=== PATIENT | female | born 1955 | race American Indian/Alaskan Native ===

== ENCOUNTER 2019-04-23 10:19 | Emergency (ER) | payer MEDICARE ==
[2019-04-23 11:03] LABS: Basophils % (Auto) 0.9 % (0.0-1.8); Eosinophils % (Auto) 0.7 % (0.0-4.3); Hematocrit 46.3 % (30.3-42.9); Hemoglobin 15.6 gm/dl (10.1-14.3); Lymphocytes # (Auto) 1.7 K/mm3 (1.2-5.4); Lymphocytes % (Auto) 41.4 % (13.4-35.0); Mean Corpuscular HGB Conc 34 % (30-34); Mean Corpuscular Volume 89 fl (79-97); Monocytes # (Auto) 0.7 K/mm3 (0.0-0.8); Monocytes % (Auto) 15.8 % (0.0-7.3); Platelet Count 117 K/mm3 (140-440); Red Blood Count 5.22 M/mm3 (3.65-5.03); Red Cell Distribution Width 13.8 % (13.2-15.2)
[2019-04-23 11:23] LABS: BUN/Creatinine Ratio 13; Blood Urea Nitrogen 8 mg/dL (7-17); Calcium 9.6 mg/dL (8.4-10.2); Hemolysis Index 35
--- NOTE | 2019-04-23 11:46 | Emergency Department Report ---
ED General Adult HPI - General Chief complaint: Altered Mental Status Stated complaint: ALTERED MENTAL STATUS Time Seen by Provider: 04/23/19 11:14 Source: patient, RN notes reviewed, old records reviewed Mode of arrival: Ambulatory Limitations: Altered Mental Status, Other (the patient is a poor historian.) - History of Present Illness Initial comments: This is a 63-year-old female. The patient is not known to this provider previously. The patient was apparently dropped off by unknown person by personal vehicle. The patient thinks that the doctor has center somewhere. She cannot recall the name of this doctor. She's not sure why she is being sent anywhere. She states that she is hungry. She then indicates that she has abdominal cramping. She denies headache, neck pain, chest pain, urinary symptoms at this time. The patient states that she lives locally. She states some people are going to help her get an apartment. She is not homicidal. She is not suicidal. She doesn't know her address. She doesn't know the year. She doesn't know if she takes any medications. It is unclear why the patient was dropped off by the aforementioned personal vehicle. The patient is not accompanied by any friends or family members or any other individuals who are able to give collateral information. At the moment, the patient denies physical pain. -: unknown Radiation: other Quality: other Consistency: other Improves with: other Worsens with: other - Related Data Previous Rx's Medication Instructions Recorded Last Taken Type Butalb/Acetamin/Caff 50-325-40 1 tab PO Q6HR PRN #10 tab 01/13/19 Unknown Rx [Fioricet] Loratadine 10 mg PO DAILY 30 Days #30 tablet 01/13/19 Unknown Rx Allergies Allergy/AdvReac Type Severity Reaction Status Date / Time No Known Allergies Allergy Unverified 01/13/19 18:06 ED Review of Systems ROS: Stated complaint: ALTERED MENTAL STATUS Other details as noted in HPI Constitutional: denies: fever Eyes: denies: eye discharge ENT: denies: epistaxis Respiratory: denies: cough Cardiovascular: denies: chest pain Gastrointestinal: denies: nausea, vomiting Genitourinary: denies: dysuria Musculoskeletal: denies: back pain Neurological: confusion Psychiatric: anxiety. denies: suicidal thoughts ED Past Medical Hx - Past Medical History Previous Medical History?: Yes Hx Hypertension: Yes Hx CVA: Yes (right-sided weakness) Hx Seizures: Yes Hx Dementia: Yes - Surgical History Past Surgical History?: No - Social History Smoking Status: Current Every Day Smoker Substance Use Type: Alcohol - Medications Home Medications: Home Medications Medication Instructions Recorded Confirmed Last Taken Type Butalb/Acetamin/Caff 50-325-40 1 tab PO Q6HR PRN #10 tab 01/13/19 Unknown Rx [Fioricet] Loratadine 10 mg PO DAILY 30 Days #30 tablet 01/13/19 Unknown Rx ED Physical Exam - General Limitations: Altered Mental Status, Other (the patient is disorganized. The patient is a poor historian.) General appearance: alert, in no apparent distress - Head Head exam: Present: atraumatic, normocephalic - Eye Eye exam: Present: normal appearance, EOMI, other (visual acuity intact to finger counting, color perception, reading at a close distance). Absent: nystagmus - ENT ENT exam: Present: normal exam, normal orophraynx, mucous membranes moist, normal external ear exam - Neck Neck exam: Present: normal inspection, full ROM. Absent: tenderness, meningismus - Respiratory Respiratory exam: Present: normal lung sounds bilaterally. Absent: respiratory distress - Cardiovascular Cardiovascular Exam: Present: regular rate, normal rhythm, normal heart sounds. Absent: bradycardia, tachycardia, irregular rhythm, systolic murmur, diastolic murmur, rubs, gallop - GI/Abdominal GI/Abdominal exam: Present: soft. Absent: distended, tenderness, guarding, rebound, rigid, pulsatile mass - Extremities Exam Extremities exam: Present: normal inspection, full ROM, other (2+ pulses noted in the bilateral upper, lower extremities. Compartments soft. No long bony tenderness. The pelvis is stable.). Absent: pedal edema, joint swelling, calf tenderness - Back Exam Back exam: Present: normal inspection, full ROM. Absent: tenderness, CVA tenderness (R), CVA tenderness (L), paraspinal tenderness, vertebral tenderness - Neurological Exam Neurological exam: Present: alert (the patient is alert to name. She doesn't know the year. She doesn't know where she is.), other (Extraocular movements intact. Tongue midline. No facial droop. Facial sensation intact to light t ouch in the V1, V2, V3 distribution bilaterally. 5 and 5 strength in 4 extremities.. Sensation is intact to light touch in 4 extremities.). Absent: motor sensory deficit - Psychiatric Psychiatric exam: Present: anxious - Skin Skin exam: Present: warm, dry, intact, normal color. Absent: rash ED Course Vital Signs 04/23/19 04/23/19 04/23/19 10:32 11:30 13:17 Temperature 98.2 F Pulse Rate 80 85 84 Respiratory 16 18 18 Rate Blood Pressure 152/94 Blood Pressure 135/62 155/68 [Right] O2 Sat by Pulse 99 100 100 Oximetry - Reevaluation(s) Reevaluation #1: 04/23/19 13:16 Differential diagnosis, including not limited to: Dementia, dehydration, thyroid derangement, electrolyte derangement, urinary tract infection, cranial hemorrhage, constipation, functional abdominal pain, case management patient Assessment and plan: 63-year-old female who appears to be confused, intermittently endorse abdominal cramping, now resolved, with a nonfocal motor examination, and an unremarkable physical examination. He is afebrile with reassuring vital signs. Her screening laboratory studies are unremarkable. Specifically, ammonia, renal function, thyroid function all within acceptable limits. Objective imaging studies, including CT scan of the brain, CT scan of the abdomen and pelvis has not demonstrated any acute or emergent conditions. Urinalysis is pending at this time. The patient may have early onset dementia, or progressive dementia, however, she does not meet 1013 criteria. Furthermore, the patient has not declared any condition at this time that would require emergency medical hospitalization. Patient will be placed on a hold, the case has been consulted and requested to assist with outpatient placement Reevaluation #2: 04/23/19 14:03 Additional information was obtained as clerical staff were able to get in touch with the patient's caregiver, Ms. Dyana Llanes; [phone] The patient [facility]. Her primary care doctor is Dr. Jesus Hassan, at [facility] Her psychiatrist is Dr. Alexandro Morillo; she has a follow-up appointment with him t omorrow. Apparently, the patient was recently diagnosed with dementia. The patient's caregiver is currently working with case management and Medicaid to obtain additional resources for this patient, and possibly seek placement into a home. I discussed this with our family service caseworker who is going to contact Mrs. Dyana Llanes Patient most likely has progressive dementia, and is experiencing the natural history of her underlying dementia. She does not appear to have an emergent medical condition at this time, and she may be discharged. ED Medical Decision Making - Lab Data Result diagrams: 04/23/19 10:45 04/23/19 10:45 Vital Signs 04/23/19 04/23/19 04/23/19 10:32 11:30 13:17 Temperature 98.2 F Pulse Rate 80 85 84 Respiratory 16 18 18 Rate Blood Pressure 152/94 Blood Pressure 135/62 155/68 [Right] O2 Sat by Pulse 99 100 100 Oximetry Lab Results 04/23/19 04/23/19 04/23/19 Range/Units 10:35 10:45 10:45 WBC 4.2 L (4.5-11.0) K/mm3 RBC 5.22 H (3.65-5.03) M/mm3 Hgb 15.6 H (10.1-14.3) gm/dl Hct 46.3 H (30.3-42.9) % MCV 89 (79-97) fl MCH 30 (28-32) pg MCHC 34 (30-34) % RDW 13.8 (13.2-15.2) % Plt Count 117 L (140-440) K/mm3 Lymph % (Auto) 41.4 H (13.4-35.0) % [place] % (Auto) 15.8 H (0.0-7.3) % Eos % (Auto) 0.7 (0.0-4.3) % Baso % (Auto) 0.9 (0.0-1.8) % Lymph # 1.7 (1.2-5.4) K/mm3 [place] # 0.7 (0.0-0.8) K/mm3 Eos # 0.0 (0.0-0.4) K/mm3 Baso # 0.0 (0.0-0.1) K/mm3 Seg Neutrophils % 41.2 (40.0-70.0) % Seg Neutrophils # 1.7 L (1.8-7.7) K/mm3 Sodium 140 (137-145) mmol/L Potassium 4.1 (3.6-5.0) mmol/L Chloride 101.2 (98-107) mmol/L Carbon Dioxide 29 (22-30) mmol/L Anion Gap 14 mmol/L BUN 8 (7-17) mg/dL Creatinine 0.6 L (0.7-1.2) mg/dL Estimated GFR > 60 ml/min BUN/Creatinine Ratio 13 % Glucose 96 (65-100) mg/dL POC Glucose 95 (70-105) Calcium 9.6 (8.4-10.2) mg/dL Magnesium (1.7-2.3) mg/dL Ammonia (25-60) umol/L Total Creatine Kinase (30-135) units/L TSH (0.270-4.200) mlU/mL Free T4 (0.76-1.46) ng/dL Salicylates (2.8-20.0) mg/dL Acetaminophen (10.0-30.0) ug/mL Plasma/Serum Alcohol (0-0.07) % 04/23/19 04/23/19 04/23/19 Range/Units 11:32 11:50 11:50 WBC (4.5-11.0) K/mm3 RBC (3.65-5.03) M/mm3 Hgb (10.1-14.3) gm/dl Hct (30.3-42.9) % MCV (79-97) fl MCH (28-32) pg MCHC (30-34) % RDW (13.2-15.2) % Plt Count (140-440) K/mm3 Lymph % (Auto) (13.4-35.0) % [place] % (Auto) (0.0-7.3) % Eos % (Auto) (0.0-4.3) % Baso % (Auto) (0.0-1.8) % Lymph # (1.2-5.4) K/mm3 [place] # (0.0-0.8) K/mm3 Eos # (0.0-0.4) K/mm3 Baso # (0.0-0.1) K/mm3 Seg Neutrophils % (40.0-70.0) % Seg Neutrophils # (1.8-7.7) K/mm3 Sodium (137-145) mmol/L Potassium (3.6-5.0) mmol/L Chloride (98-107) mmol/L Carbon Dioxide (22-30) mmol/L Anion Gap mmol/L BUN (7-17) mg/dL Creatinine (0.7-1.2) mg/dL Estimated GFR ml/min BUN/Creatinine Ratio % Glucose (65-100) mg/dL POC Glucose 90 (70-105) Calcium (8.4-10.2) mg/dL Magnesium (1.7-2.3) mg/dL Ammonia (25-60) umol/L Total Creatine Kinase (30-135) units/L TSH 0.965 (0.270-4.200) mlU/mL Free T4 1.18 (0.76-1.46) ng/dL Salicylates (2.8-20.0) mg/dL Acetaminophen (10.0-30.0) ug/mL Plasma/Serum Alcohol (0-0.07) % 04/23/19 04/23/19 04/23/19 Range/Units 11:50 11:50 11:51 WBC (4.5-11.0) K/mm3 RBC (3.65-5.03) M/mm3 Hgb (10.1-14.3) gm/dl Hct (30.3-42.9) % MCV (79-97) fl MCH (28-32) pg MCHC (30-34) % RDW (13.2-15.2) % Plt Count (140-440) K/mm3 Lymph % (Auto) (13.4-35.0) % [place] % (Auto) (0.0-7.3) % Eos % (Auto) (0.0-4.3) % Baso % (Auto) (0.0-1.8) % Lymph # (1.2-5.4) K/mm3 [place] # (0.0-0.8) K/mm3 Eos # (0.0-0.4) K/mm3 Baso # (0.0-0.1) K/mm3 Seg Neutrophils % (40.0-70.0) % Seg Neutrophils # (1.8-7.7) K/mm3 Sodium (137-145) mmol/L Potassium (3.6-5.0) mmol/L Chloride (98-107) mmol/L Carbon Dioxide (22-30) mmol/L Anion Gap mmol/L BUN (7-17) mg/dL Creatinine (0.7-1.2) mg/dL Estimated GFR ml/min BUN/Creatinine Ratio % Glucose (65-100) mg/dL POC Glucose (70-105) Calcium (8.4-10.2) mg/dL Magnesium 2.10 (1.7-2.3) mg/dL Ammonia (25-60) umol/L Total Creatine Kinase 182 H (30-135) units/L TSH (0.270-4.200) mlU/mL Free T4 (0.76-1.46) ng/dL Salicylates < 0.3 L (2.8-20.0) mg/dL Acetaminophen < 5.0 L (10.0-30.0) ug/mL Plasma/Serum Alcohol (0-0.07) % 04/23/19 04/23/19 Range/Units 11:51 11:51 WBC (4.5-11.0) K/mm3 RBC (3.65-5.03) M/mm3 Hgb (10.1-14.3) gm/dl Hct (30.3-42.9) % MCV (79-97) fl MCH (28-32) pg MCHC (30-34) % RDW (13.2-15.2) % Plt Count (140-440) K/mm3 Lymph % (Auto) (13.4-35.0) % [place] % (Auto) (0.0-7.3) % Eos % (Auto) (0.0-4.3) % Baso % (Auto) (0.0-1.8) % Lymph # (1.2-5.4) K/mm3 [place] # (0.0-0.8) K/mm3 Eos # (0.0-0.4) K/mm3 Baso # (0.0-0.1) K/mm3 Seg Neutrophils % (40.0-70.0) % Seg Neutrophils # (1.8-7.7) K/mm3 Sodium (137-145) mmol/L Potassium (3.6-5.0) mmol/L Chloride (98-107) mmol/L Carbon Dioxide (22-30) mmol/L Anion Gap mmol/L BUN (7-17) mg/dL Creatinine (0.7-1.2) mg/dL Estimated GFR ml/min BUN/Creatinine Ratio % Glucose (65-100) mg/dL POC Glucose (70-105) Calcium (8.4-10.2) mg/dL Magnesium (1.7-2.3) mg/dL Ammonia 45.0 (25-60) umol/L Total Creatine Kinase (30-135) units/L TSH (0.270-4.200) mlU/mL Free T4 (0.76-1.46) ng/dL Salicylates (2.8-20.0) mg/dL Acetaminophen (10.0-30.0) ug/mL Plasma/Serum Alcohol < 0.01 (0-0.07) % - EKG Data -: EKG Interpreted by Ia EKG shows normal: sinus rhythm Rate: normal - EKG Data 04/23/19 13:19 This is a normal sinus rhythm, 72 bpm, with axis deviation, left anterior fascicular block, motion artifact, QTC 441 ms, the EKG is abnormal, as no prior for comparison, the EKG is not consistent with ST elevation myocardial infarction - Radiology Data Radiology results: pending, report reviewed, image reviewed Noncontrast CT scan of the brain is negative for acute disease. Noncontrast CT scan of the abdomen pelvis is negative for acute disease. Critical care attestation.: If time is entered above; I have spent that time in minutes in the direct care of this critically ill patient, excluding procedure time. ED Disposition Clinical Impression: Case management patient, Dementia Disposition: DC-01 TO HOME OR SELFCARE Is pt being admited?: No Does the pt Need Aspirin: No Condition: Good Additional Instructions: Continue current outpatient medications. Follow-up with your psychiatrist tomorrow as scheduled. Follow up with case management within the next week. Return to the emergency room right away with new, worsening or different symptoms, or symptoms not present on the initial emergency room evaluation. The patient should not drive or operate heavy motor vehicles. The patient should stay away from all stoves, ovens, electrical outlets and sharp objects. The patient should not have access to or be exposed to any objects or environments or conditions that she may accidentally harm herself or other people.
--- NOTE | 2019-04-23 12:39 | Cat Scan Report ---
CT HEAD WITHOUT CONTRAST HISTORY: Altered mental status. TECHNIQUE: Axial imaging performed from the skull apex through the skull base without the use of con trast. All CT scans at this location are performed using CT dose reduction for ALARA by means of aut omated exposure control. COMPARISON: 01/13/2019 FINDINGS: Parenchyma: No acute intracranial hemorrhage or parenchymal abnormality.. Mild hypoattenuation thro ughout the white matter is noted and consistent with chronic microvascular ischemic disease. Ventricles: There is mild diffuse brain atrophy with commensurate ventricular enlargement which is l ikely age appropriate. Soft tissues: Soft tissues including the orbits appear normal. Bones: No acute osseous abnormality. Sinuses: Sinuses and mastoid air cells are clear. IMPRESSION: No acute abnormality. Mild volume loss and chronic white matter changes. Signer Name: Khoi Carranza Jr, MD Signed: 04/23/2019 12:34 PM Workstation Name: [id number]
--- NOTE | 2019-04-23 12:42 | Cat Scan Report ---
CT ABDOMEN AND PELVIS WITHOUT CONTRAST HISTORY: Abdominal pain for one day COMPARISON: None. TECHNIQUE: Axial CT images were obtained through the abdomen and pelvis without IV contrast. Sagittal and coronal reformatted images. All CT scans at this location are performed using CT dose reduction for ALARA by means of automated exposure control. FINDINGS: CT ABDOMEN: Lung Bases: Clear. Liver: No significant abnormality. Biliary: Cholecystectomy. No biliary dilatation. Spleen: No significant abnormality. Unenlarged. Pancreas: No significant abnormality. Adrenals: No significant abnormality. Kidneys: No significant abnormality. Lymphatics: No lymphadenopathy. Vasculature: Minimal aortic calcifications. No aneurysm. Bowel/Peritoneum: No significant abnormality. No free air. No free fluid. Normal appendix. CT PELVIS: : Hysterectomy changes are suspected. No pelvic cyst or mass. Osseous Structures: Moderate lumbar spondylosis. Focal area of osteonecrosis in the superior left fem oral head is noted. Additional Findings: None IMPRESSION: No acute inflammatory process is identified. Surgical changes as described. Lumbar spondylosis. 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
[2019-04-23] MEDS ORDERED: PROVENTIL IH PRN (13:20)
[2019-04-23] MEDS ORDERED: TYLENOL PO PRN (13:20)
[2019-04-23] MEDS ORDERED: ZOFRAN ODT PO PRN (13:20)
[2019-04-23 13:29] LABS: Bilirubin,Urine NEG (Negative); Blood,Urine NEG (Negative); Color,Urine Yellow (Yellow); Mucus,Urine FEW /HPF; Protein,Urine <15 mg/dL mg/dL (Negative)
[2019-04-23 13:38] LABS: Amphetamine Screen,Urine PRESUMPTIVE NEGATIVE; Benzodiazepines Screen,Urine PRESUMPTIVE NEGATIVE; Cannabinoid Screen,Urine PRESUMPTIVE NEGATIVE; Cocaine Screen,Urine PRESUMPTIVE NEGATIVE; Methadone Screen,Urine PRESUMPTIVE NEGATIVE; Opiate Screen,Urine PRESUMPTIVE NEGATIVE
[2019-04-23 15:29] VITALS: BP 121/78
== END 2019-04-23 16:05 | disposition home or self-care (01) ==
LOC: ED 10:19
DX: F03.90 Unspecified dementia, unspecified severity, without behavioral disturbance, psychotic disturbance, mood disturbance, and anxiety (principal); I10 Essential (primary) hypertension; F17.200 Nicotine dependence, unspecified, uncomplicated; Z86.73 Personal history of transient ischemic attack (TIA), and cerebral infarction without residual deficits; F41.9 Anxiety disorder, unspecified; R41.0 Disorientation, unspecified; Z79.899 Other long term (current) drug therapy
CPT/HCPCS: 36415; 70450; 74176; 80048; 80164; 80307; 80320; 81001; 82140; 82550; 82962; 83735; 84439; 84443; 85025; 93005; 93010; G0480

== ENCOUNTER 2022-01-25 09:59 | Emergency (ER) | payer MEDICARE ==
--- NOTE | 2022-01-25 11:07 | Emergency Department Report ---
HPI - General Chief Complaint: Medical Clearance Time Seen by Provider: 01/25/22 10:50 - HPI HPI: [facility] 19 The patient is a 66-year-old female present with a chief complaint of combative behavior. Patient has a history of dementia and was sent to the ED from her personal [facility] for "acting out." The patient reportedly was behaving aggressively and was combative at the personal-[facility]. Patient has history of dementia and schizophrenia. In the ED when asked how she is feeling the patient has rambling speech but does not give any specific answers. Patient states "she put children..." And "she got mad at me..." ED Past Medical Hx - Past Medical History Hx Hypertension: Yes Hx CVA: Yes (right-sided weakness) Hx Seizures: Yes Hx Dementia: Yes - Surgical History Past Surgical History?: No - Family History Family history: no significant - Social History Smoking Status: Unknown if ever smoked - Medications Home Medications: Home Medications Medication Instructions Recorded Confirmed Last Taken Type Amlodipine Besylate [Norvasc] 5 mg PO DAILY 04/23/19 04/23/19 Unknown History Benztropine [Cogentin] 0.5 mg PO BID 04/23/19 04/23/19 Unknown History Divalproex ER [DepaKOTE ER] 500 mg PO HS 04/23/19 04/23/19 Unknown History Hydrocortisone 2.5% [Hytone 2.5% 1 applicatio TP BID PRN 04/23/19 04/23/19 Unknown History CREAM] Memantine [Namenda] 10 mg PO BID 04/23/19 04/23/19 Unknown History Quetiapine Fumarate [SEROquel] 300 mg PO HS 04/23/19 04/23/19 Unknown History donepeziL [Aricept] 10 mg PO HS 04/23/19 04/23/19 Unknown History ED Review of Systems ROS: Stated complaint: PSYCH Other details as noted in HPI Comment: Unobtainable due to pts medical conditions (Dementia) Physical Exam - Physical Exam Vital Signs: Vital Signs 01/25/22 10:02 Pulse Rate 71 Blood Pressure 139/80 [Left] O2 Sat by Pulse 100 Oximetry Physical Exam: GENERAL: The patient is well-developed well-nourished female lying on stretcher not appearing to be in any acute distress. Patient is calm HEENT: Normocephalic. Atraumatic. Extraocular motions are intact. Patient has moist mucous membranes. NECK: Supple. Trachea midline CHEST/LUNGS: Clear to auscultation. There is no respiratory distress noted. HEART/CARDIOVASCULAR: Regular. There is no tachycardia. There is no gallop rub or murmur. ABDOMEN: Abdomen is soft, nontender. Patient has normal bowel sounds. There is no abdominal distention. SKIN: There is no rash. There is no edema. There is no diaphoresis. NEURO: The patient is awake and alert. The patient calm and cooperative. Patient is demented and exhibits rambling speech at times when asked a question.. GCS 15. The patient has normal speech MUSCULOSKELETAL:There is no evidence of acute injury. ED Course Vital Signs 01/25/22 10:02 Pulse Rate 71 Blood Pressure 139/80 [Left] O2 Sat by Pulse 100 Oximetry ED Medical Decision Making - Lab Data Result diagrams: 01/25/22 11:13 01/25/22 11:13 - Differential Diagnosis Dementia, schizophrenia Critical care attestation.: If time is entered above; I have spent that time in minutes in the direct care of this critically ill patient, excluding procedure time. ED Disposition Clinical Impression: Dementia Disposition: 03 ASSISTED FACILITY Is pt being admited?: No Does the pt Need Aspirin: No Condition: Stable Referrals: PRIMARY CARE, [Primary Care Provider] - 3-5 Days
[2022-01-25 11:59] LABS: BUN/Creatinine Ratio 22; Blood Urea Nitrogen 13 mg/dL (7-17); Calcium 9.5 mg/dL (8.4-10.2); Hemolysis Index 13
[2022-01-25 12:01] LABS: Hematocrit 41.7 % (30.3-42.9); Hemoglobin 13.8 gm/dl (10.1-14.3); Mean Corpuscular HGB Conc 33 % (30-34); Mean Corpuscular Volume 87 fl (79-97); Platelet Count 191 K/mm3 (140-440); Red Blood Count 4.82 M/mm3 (3.65-5.03); Red Cell Distribution Width 13.3 % (13.2-15.2)
[2022-01-25 13:44] LABS: Amphetamine Screen,Urine Negative; Benzodiazepines Screen,Urine Negative; Cannabinoid Screen,Urine Negative; Cocaine Screen,Urine Negative; Methadone Screen,Urine Negative; Opiate Screen,Urine Negative
[2022-01-25 14:37] LABS: Mucus,Urine FEW /HPF
[2022-01-25 14:46] LABS: Bilirubin,Urine Negative (Negative); Blood,Urine Negative (Negative); Color,Urine Yellow (Yellow); PH,Urine 6.5 (5.0-7.0)
[2022-01-25 14:47] LABS: Urobilinogen,Urine < 2.0 mg/dL (<2.0)
[2022-01-25 20:54] VITALS: BP 139/78
== END 2022-01-26 00:19 ==
LOC: ED 09:59
DX: F03.90 Unspecified dementia, unspecified severity, without behavioral disturbance, psychotic disturbance, mood disturbance, and anxiety (principal); Z20.822 Contact with and (suspected) exposure to COVID-19; I10 Essential (primary) hypertension
CPT/HCPCS: 36415; 80048; 80164; 80307; 81001; 85025; 99285; U0003; 80320; 99284; G0480